=== PATIENT | female | born 2000 | race Two or more races ===

== ENCOUNTER 2024-04-17 19:45 | Emergency (ER) | payer OTHER ==
[~2024-04-17] VITALS: Ht 175.3 cm; Wt 65.8 kg
[2024-04-17] MEDS ORDERED: ACETAMINOPHEN 500 MG GEL..CAP PO STA (20:18)
[2024-04-17] MEDS ORDERED: 0.9 % SODIUM CHLORIDE 500 ML IV STA (20:19)
[2024-04-17] MEDS ORDERED: ACETAMINOPHEN 500 MG GEL..CAP PO ONE (20:25)
[2024-04-17 21:17] LABS: HEMATOCRIT 45.6 % (36.0-45.00); HEMOGLOBIN 15.9 g/dL (12.0-15.00); MEAN CELL VOLUME 93.5 fL (80.00-100.00); MEAN CORPUSCULAR HEMOGLOBIN 32.6 pg (27.00-32.0); MEAN CORPUSCULAR HGB CONC 34.8 g/dl (32.0-36.0); PLATELET COUNT 168 K/uL (150-450); RED BLOOD COUNT 4.88 M/uL (4.00-6.00); RED CELL DISTRIBUTION WIDTH 12.6 % (11.5-14.5)
[2024-04-17 21:23] LABS: ALBUMIN 4.4 gm/dL (3.4-5.0); BILIRUBIN TOTAL 0.35 mg/dL (0.3-1.2); CALCIUM 9.4 mg/dL (8.5-10.1); CREATININE SERUM 1.21 mg/dL (0.55-1.02); GFR 56.17; GLOBULINA 3.8 G/DL (2.4-3.5); POTASSIUM 4.1 mEq/L (3.5-5.1); TOTAL PROTEIN 8.2 gm/dL (6.4-8.2)
== END 2024-04-17 22:19 | disposition home or self-care (01) ==
LOC: ER 19:46
PROVIDERS: General Practice
DX: T67.5XXA Heat exhaustion, unspecified, initial encounter (principal); X32.XXXA Exposure to sunlight, initial encounter; Y93.89 Activity, other specified; Y92.832 Beach as the place of occurrence of the external cause; Y99.9 Unspecified external cause status